=== PATIENT | male | born 1940 | race Caucasian/White ===

== ENCOUNTER 2017-04-15 10:53 | Day surgery (SDC) | payer MEDICARE, OTHER ==
--- NOTE | ~2017-04-15 | EGD ---
EGD REPORT [facility] [address] [address] NAME: JABARI JOHNSTON : [birth year] STATUS : REG [facility]#: [id number] AGE: 77 ADM/REG DATE : 04/15/17 MR#: [id number] REPORT SERV DATE: 04/15/17 DICTATED BY: COLT ZAIDI DATE: 04/15/17 REPORT STATUS : Draft TRANSCRIBED BY: [employer] DATE: 04/15/17 [facility] Patient Name: Jabari Johnston Date of : 1940 Attending MD: COLT ZAIDI, Procedure Date No Time: 04/15/2017 Procedure: Upper GI endoscopy Indications: Heartburn Medicines: Monitored Anesthesia Care Complications: No immediate complications. Estimated blood loss: None. Procedure: Pre-Anesthesia Assessment: - ASA Grade Assessment: III - A patient with severe systemic disease. After obtaining informed consent, the endoscope was passed under direct vision. Throughout the procedure, the patient's blood pressure, pulse, and oxygen saturations were monitored continuously. The GIF [id number] was introduced through the mouth, and advanced to the second part of duodenum. The upper GI endoscopy was accomplished without difficulty. The patient tolerated the procedure well. Findings: LA Grade C (one or more mucosal breaks continuous between tops of 2 or more mucosal folds, less than 75% circumference) esophagitis with no bleeding was found in the lower third of the esophagus. Biopsies were taken with a cold forceps for histology. Verification of patient identification for the specimen was done. Estimated blood loss was minimal. The exam of the esophagus was otherwise normal. A 4 cm hiatus hernia was present. The exam of the stomach was otherwise normal. The cardia and gastric fundus were normal on retroflexion. Localized moderately congested mucosa without active bleeding and with no stigmata of bleeding was found in the duodenal bulb. Biopsies were taken with a cold forceps for histology. Verification of patient identification for the specimen was done. Estimated blood loss was minimal. The exam of the duodenum was otherwise normal. Impression: - LA Grade C reflux esophagitis. Biopsied. - Hiatus hernia. - Congested duodenal mucosa. Biopsied. Recommendation: - Return to previous diet. EGD REPORT [address] [address] NAME: JABARI JOHNSTON : [birth year] STATUS : REG [facility] [place] PAT#: [id number] AGE: 77 ADM/REG DATE : 04/15/17 MR#: [id number] REPORT SERV DATE: 04/15/17 DICTATED BY: COLT ZAIDI DATE: 04/15/17 REPORT STATUS : Draft TRANSCRIBED BY: [employer] DATE: 04/15/17 - Continue present medications. - Use Nexium (esomeprazole) 40 mg PO daily. - Repeat the upper endoscopy in 3 months to check healing. Procedure Code(s): --- Professional --- 27051, Esophagogastroduodenoscopy, flexible, transoral; with biopsy, single or multiple Diagnosis Code(s): --- Professional --- K21.0, Gastro-esophageal reflux disease with esophagitis K44.9, Diaphragmatic hernia without obstruction or gangrene K31.9, Disease of stomach and duodenum, unspecified R12, Heartburn CPT copyright 2013 [employer]. All rights reserved. The codes documented in this report are preliminary and upon senior property manager review may be revised to meet current compliance requirements. Stu WHARTON/16/2017 1:09 PM Number of Addenda: 0 Note Initiated On: 04/15/2017 12:18 PM Scope Withdrawal Time 0 hours 0 minutes 0 seconds [id number] [place] [id number]
--- NOTE | ~2017-04-15 | EGD ---
EGD REPORT [facility] [address] [address] NAME: JABARI JOHNSTON : [birth year] STATUS : REG [facility]#: [id number] AGE: 77 ADM/REG DATE : 04/15/17 MR#: [id number] REPORT SERV DATE: 04/15/17 DICTATED BY: COLT ZAIDI DATE: 04/15/17 REPORT STATUS : Draft TRANSCRIBED BY: [employer] DATE: 04/15/17 [facility] Patient Name: Jabari Johnston Date of : 1940 Attending MD: COLT ZAIDI, Procedure Date No Time: 04/15/2017 Procedure: Colonoscopy Indications: High risk colon cancer surveillance: Personal history of colonic polyps Medicines: Monitored Anesthesia Care Complications: No immediate complications. Estimated blood loss: None. Procedure: Pre-Anesthesia Assessment: - ASA Grade Assessment: III - A patient with severe systemic disease. After I obtained informed consent, the scope was passed under direct vision. Throughout the procedure, the patient's blood pressure, pulse, and oxygen saturations were monitored continuously. The CF [id number] was introduced through the anus and advanced to the sigmoid colon. The PCF [id number] was introduced through the anus and advanced to the cecum, identified by appendiceal orifice and ileocecal valve. The ileocecal valve, appendiceal orifice and rectum were photographed. Findings: The perianal and digital rectal examinations were normal. Internal hemorrhoids were found during retroflexion and were Grade II (internal hemorrhoids that prolapse but reduce spontaneously). Multiple small-mouthed diverticula were found in the sigmoid colon, in the descending colon, in the transverse colon and in the ascending colon. A sessile polyp was found in the ascending colon. The polyp was 2 mm in size. The polyp was removed with a cold biopsy forceps. Resection and retrieval were complete. Verification of patient identification for the specimen was done. Estimated blood loss was minimal. Two sessile polyps were found in the ascending colon. The polyps were 5 to 7 mm in size. These polyps were removed with a cold snare. Resection and retrieval were complete. Verification of patient identification for the specimen was done. Estimated blood loss was minimal. Four sessile polyps were found in the transverse colon. The polyps were 4 to 6 mm in size. These polyps were removed with a cold snare. Resection and retrieval were complete. Verification of patient identification for the specimen was done. Estimated blood loss was minimal. A sessile polyp was found in the sigmoid colon. The polyp was 3 mm in size. The polyp was removed with a cold biopsy forceps. Resection and EGD REPORT [address] [address] NAME: JABARI JOHNSTON : [birth year] STATUS : REG [facility]#: [id number] AGE: 77 ADM/REG DATE : 04/15/17 MR#: [id number] REPORT SERV DATE: 04/15/17 DICTATED BY: COLT ZAIDI DATE: 04/15/17 REPORT STATUS : Draft TRANSCRIBED BY: [employer] DATE: 04/15/17 retrieval were complete. Verification of patient identification for the specimen was done. Estimated blood loss was minimal. The exam was otherwise without abnormality on direct and retroflexion views. Impression: - Internal hemorrhoids. - Diverticulosis in the sigmoid colon, in the descending colon, in the transverse colon and in the ascending colon. - One 2 mm polyp in the ascending colon. Resected and retrieved. - Two 5 to 7 mm polyps in the ascending colon. Resected and retrieved. - Four 4 to 6 mm polyps in the transverse colon. Resected and retrieved. - One 3 mm polyp in the sigmoid colon. Resected and retrieved. - The examination was otherwise normal on direct and retroflexion views. Recommendation: - Patient has a contact number available for emergencies. The signs and symptoms of potential delayed complications were discussed with the patient. Return to normal activities tomorrow. Written discharge instructions were provided to the patient. - Return to previous diet. - Continue present medications. - Await pathology results. - Repeat colonoscopy in 3 years for surveillance. Procedure Code(s): --- Professional --- 65769, Colonoscopy, flexible, proximal to splenic flexure; with removal of tumor(s), polyp(s), or other lesion(s) by snare technique 20555, 59, Colonoscopy, flexible, proximal to splenic flexure; with biopsy, single or multiple Diagnosis Code(s): --- Professional --- K64.1, Second degree hemorrhoids K57.30, Diverticulosis of large intestine without perforation or abscess without bleeding D12.5, Benign neoplasm of sigmoid colon D12.3, Benign neoplasm of transverse colon D12.2, Benign neoplasm of ascending colon Z86.010, Personal history of colonic polyps EGD REPORT [facility] [address] [place], [place] [address]. [address] NAME: JABARI JOHNSTON : [birth year] STATUS : REG [facility] [place] PAT#: [id number] AGE: 77 ADM/REG DATE : 04/15/17 MR#: [id number] REPORT SERV DATE: 04/15/17 DICTATED BY: COLT ZAIDI DATE: 04/15/17 REPORT STATUS : Draft TRANSCRIBED BY: [employer] DATE: 04/15/17 CPT copyright 2013 [employer]. All rights reserved. The codes documented in this report are preliminary and upon sales contract administrator review may be revised to meet current compliance requirements. COLT ZAIDI, 04/15/2017 1:12 PM Number of Addenda: 0 Note Initiated On: 04/15/2017 12:15 PM Scope Withdrawal Time 0 hours 15 minutes [address] [place], [place] [address] [address]
[~2017-04-15 10:53] MED LIST: AMITIZA8 MCG PO; ASAB PO; B12250T PO; BENTYL20 PO; LIBRAX PO; METAMUCIL CAN7 OZ PO; MIRALAX POWDER1 PKT PO; PRINZIDE1 TAB PO; VITC500 PO; VITS
== END 2017-04-15 23:59 | disposition home or self-care (01) ==
LOC: DMU 10:53
PROVIDERS: Internal Medicine Gastroenterology
PROC: 0DB58ZZ Excision of Esophagus, Via Natural or Artificial Opening Endoscopic (ICD-10-PCS; 2017-04-15)
PROC: 0DB98ZZ Excision of Duodenum, Via Natural or Artificial Opening Endoscopic (ICD-10-PCS; 2017-04-15)
PROC: 0DBK8ZZ Excision of Ascending Colon, Via Natural or Artificial Opening Endoscopic (ICD-10-PCS; principal; 2017-04-15 13:00)
PROC: 0DBN8ZZ Excision of Sigmoid Colon, Via Natural or Artificial Opening Endoscopic (ICD-10-PCS; 2017-04-15 13:00)
PROC: 0DBL8ZZ Excision of Transverse Colon, Via Natural or Artificial Opening Endoscopic (ICD-10-PCS; 2017-04-15 13:00)
DX: Z12.11 Encounter for screening for malignant neoplasm of colon (principal); K29.80 Duodenitis without bleeding; D12.2 Benign neoplasm of ascending colon; D12.3 Benign neoplasm of transverse colon; D12.5 Benign neoplasm of sigmoid colon; I10 Essential (primary) hypertension; I45.10 Unspecified right bundle-branch block; K64.1 Second degree hemorrhoids; K57.30 Diverticulosis of large intestine without perforation or abscess without bleeding; K21.0 Gastro-esophageal reflux disease with esophagitis; K44.9 Diaphragmatic hernia without obstruction or gangrene; K31.9 Disease of stomach and duodenum, unspecified; R12 Heartburn; Z86.010 Personal history of colon polyps; Z90.89 Acquired absence of other organs; Z98.890 Other specified postprocedural states; N40.0 Benign prostatic hyperplasia without lower urinary tract symptoms; K58.9 Irritable bowel syndrome, unspecified; R63.4 Abnormal weight loss; Z87.891 Personal history of nicotine dependence
CPT/HCPCS: 88305